=== PATIENT | male | born 1965 | race Caucasian/White ===

== ENCOUNTER 2018-08-13 19:19 | Emergency (ER) | payer MEDICARE ==
[~2018-08-13] VITALS: Ht 177.8 cm; Wt 71.0 kg
[~2018-08-13 19:19] MED LIST: ALLO100T30 PO; AMLO10TA8 PO; AMOX-367 PO; ASPI325T17 PO; ATOR40TA78 PO; ATOV750O PO; CALC0.25 PO; CALC200T3 PO; CARV25TA12 PO; CARV3.1212 PO; FAMO20TA7 PO; FLUC50TA PO; FLUC50TA3 PO; FURO-93 PO; FURO40TA6 PO; HYDR-3341 PO; INSU100I18 SQ-INSULIN; LABE300T2 PO; LOSA50TA14 PO; MAGN400T7 PO; METO5TAB57 PO; MYCO250C4 PO; MYCO500T3 PO; NPH,100V SQ-INSULIN; ONDA4TAB10 PO; OXYC-302 PO; OXYC5TAB3 PO; PRED10TA PO; PRED10TA14 PO; PRED20TA PO; SODI650T PO; SULF1TAB23 PO; TACR0.5C4 PO; TACR1CAP4 PO; ZOLP10TA PO
--- NOTE | 2018-08-13 19:46 | NUR ---
Angela MINA, at bedside to evaluate pt. Pt states that he has been having chest pain x 1 week. Pt states that today during dialysis he had chest pain, and "almost told them about it, but didn't."
[2018-08-13 19:59] LABS: BASOPHILS # (AUTO) 0.01 x10^3/uL (0-0.1); BASOPHILS % (AUTO) 0 % (0-1); EOSINOPHILS # (AUTO) 0.03 x10^3/uL (0-0.4); EOSINOPHILS % (AUTO) 1 % (1-7); LYMPHOCYTES # (AUTO) 1.09 x10^3/uL (1-3.4); LYMPHOCYTES % (AUTO) 31 % (22-44); MD NO; MEAN CORPUSCULAR HEMOGLOBIN 31.5 pg (27.5-34.5); MEAN CORPUSCULAR HGB CONC 33.2 g/dL (33.2-36.2); MEAN CORPUSCULAR VOLUME 94.9 fL (81-97); MEAN PLATELET VOLUME 7.3 fL (7.4-10.4); MONOCYTES # (AUTO) 0.37 x10^3/uL (0.2-0.8); MONOCYTES % (AUTO) 11 % (2-9); NEUTROPHILS # (AUTO) 2.01 x10^3/uL (1.8-6.8); NEUTROPHILS % (AUTO) 57 % (42-75); PLATELET COUNT 103 x10^3/uL (130-400); RED BLOOD COUNT 3.21 x10^6/uL (4.38-5.82)
[2018-08-13] MEDS ORDERED: ONDANSETRON 2MG/ML, 2ML ONE (20:00)
[2018-08-13] MEDS ORDERED: ONDANSETRON 2MG/ML, 2ML IVPush ONE (20:00)
[2018-08-13] MEDS ORDERED: MORPHINE SULFATE 4 MG/ML, 1ML ONE ×2 (20:01→21:09)
[2018-08-13 20:12] LABS: INTERNATIONAL NORMALIZED RATIO 1.15 (0.93-1.1); PROTHROMBIN TIME 12.1 Seconds (9.6-11.5)
[2018-08-13] MEDS: MORPHINE SULFATE 4 MG/ML, 1ML IVPush PRN ×2 (20:12→21:13)
--- NOTE | 2018-08-13 20:12 | NUR ---
Pt medicated per MAR.
[2018-08-13 20:26] LABS: ALANINE AMINOTRANSFERASE 13 U/L (12-78); ALBUMIN 2.9 g/dL (3.4-5.0); ANION GAP 8 mmol/L (5-15); CALCIUM 7.7 mg/dL (8.5-10.1); CHLORIDE 100 mmol/L (98-107); CREATININE 3.14 mg/dL (0.7-1.3)
[2018-08-13 20:30] LABS: ALKALINE PHOSPHATASE 119 U/L (45-117); BILIRUBIN,TOTAL 0.5 mg/dL (0.2-1.0); TOTAL PROTEIN 7.9 g/dL (6.4-8.2); TROPONIN I 0.019 ng/mL (0.000-0.045)
--- NOTE | 2018-08-13 21:08 | NUR ---
Pt resting on gurney, states pain is not controlled. This RN to give additional dose of morphine.
--- NOTE | 2018-08-13 21:13 | NUR ---
Pt medicated per MAR.
--- NOTE | 2018-08-13 21:47 | NUR ---
Dr. Lomax at bedside to evaluate pt and discuss ED findings.
--- NOTE | 2018-08-13 23:20 | NUR ---
Break RN: Pt resting on gurGetAFive with no s/s of acute distress. Pt states CP continues after meds. VSS. NSR on monitor. ERP to be notified of pt's continued CP. All results complete and chart up for recheck. Call light in reach.
[2018-08-13] MEDS ORDERED: OMNIPAQUE 350 MG/ML, 100ML BOTTLE ONE (23:57)
[2018-08-14 00:58] VITALS: BP 138/76
--- NOTE | 2018-08-14 00:59 | NUR ---
Patient/Caregiver given discharge instructions and they have confirmed that they understand the instructions. Patient ambulatory with steady gait.
== END 2018-08-14 01:00 | disposition home or self-care (01) ==
LOC: ED 20:53
DX: R07.2 Precordial pain (principal); J15.9 Unspecified bacterial pneumonia; Z86.73 Personal history of transient ischemic attack (TIA), and cerebral infarction without residual deficits; E11.9 Type 2 diabetes mellitus without complications; I11.0 Hypertensive heart disease with heart failure; I50.9 Heart failure, unspecified
CPT/HCPCS: 36415; 71045; 71275; 80053; 84484; 85025; 85610; 93005; 96374; 96375; 96376; 99284; J2405; Q9967

== ENCOUNTER 2019-07-13 19:55 | Emergency (ER) | payer MEDICARE ==
[~2019-07-13] VITALS: Ht 175.3 cm; Wt 90.0 kg
[~2019-07-13 19:55] MED LIST changes: -MAGN400T7 PO; +MAGN400T9 PO
--- NOTE | 2019-07-13 20:25 | NUR ---
PT CURRENTLY IN RADIOLOGY
[2019-07-13] MEDS ORDERED: ONDANSETRON ODT 4 MG PO ONE (20:30)
[2019-07-13] MEDS ORDERED: ONDANSETRON ODT 4 MG ONE (20:37)
[2019-07-13 20:53] LABS: ALANINE AMINOTRANSFERASE 14 U/L (12-78); ANION GAP 6 mmol/L (5-15); CALCIUM 13.4 mg/dL (8.5-10.1); CHLORIDE 96 mmol/L (98-107)
--- NOTE | 2019-07-13 20:54 | NUR ---
PT MEDICATED ORDERED. UPDATED ON POC INCLUDING PENDING TEST RESULTS AND CHART REVIEW BY ERP, DENIED QUESTIONS/CONCERNS AT THIS TIME. PROVIDED W/ WARM BLANKETS.
[2019-07-13 20:55] LABS: ALKALINE PHOSPHATASE 82 U/L (45-117); TOTAL PROTEIN 9.4 g/dL (6.4-8.2)
[2019-07-13 21:30] LABS: BASOPHILS # (AUTO) 0.02 x10^3/uL (0-0.1); BASOPHILS % (AUTO) 1 % (0-1); EOSINOPHILS # (AUTO) 0.06 x10^3/uL (0-0.4); EOSINOPHILS % (AUTO) 2 % (1-7); LYMPHOCYTES # (AUTO) 0.79 x10^3/uL (1-3.4); LYMPHOCYTES % (AUTO) 23 % (22-44); MD SCAN; MEAN CORPUSCULAR HGB CONC 34.8 g/dL (33.2-36.2); MEAN CORPUSCULAR VOLUME 97.7 fL (81-97); MEAN PLATELET VOLUME 8.1 fL (7.4-10.4); MONOCYTES # (AUTO) 0.41 x10^3/uL (0.2-0.8); MONOCYTES % (AUTO) 12 % (2-9); NEUTROPHILS # (AUTO) 2.11 x10^3/uL (1.8-6.8); NEUTROPHILS % (AUTO) 62 % (42-75); PLATELET COUNT 97 x10^3/uL (130-400); RED BLOOD COUNT 2.88 x10^6/uL (4.38-5.82); RED CELL DISTRIBUTION WIDTH 18.6 % (9.4-14.8)
[2019-07-13] MEDS ORDERED: MORPHINE SULFATE 4 MG/ML, 1ML IVPush ONE (21:30)
[2019-07-13] MEDS ORDERED: ONDANSETRON 2MG/ML, 2ML IVPush ONE (21:30)
--- NOTE | 2019-07-13 21:34 | NUR ---
PT TO CT VIA DONNELL
[2019-07-13] MEDS ORDERED: ONDANSETRON 2MG/ML, 2ML ONE (21:45)
[2019-07-13] MEDS ORDERED: MORPHINE SULFATE 4 MG/ML, 1ML ONE (21:45)
--- NOTE | 2019-07-13 22:03 | NUR ---
PIV PLACED IN RAC. MEDICATED ORDERED. REPOSITIONED ON GURNEY FOR COMFORT, PROVIDED W/ WARM BLANKETS. UPDATED PT AND SPOUSE ON POC INCLUDING PENDING TESTS AND CHART REVIEW BY ERP.
[2019-07-13] MEDS ORDERED: hydrALAzine 20 MG/ML, 1ML IV ONE (22:30)
[2019-07-13] MEDS ORDERED: SODIUM CHLORIDE 0.9%, 500ML IVBOLUS ONE (22:30)
[2019-07-13] MEDS ORDERED: hydrALAzine 20 MG/ML, 1ML ONE (22:39)
--- NOTE | 2019-07-13 22:50 | NUR ---
MEDICATED ORDERED. IVF INFUSING ORDERED. PT MORE SLOW TO ANSWER QUESTIONS, REMAINS A&O. REPOSITIONED ON GURNEY, PROVIDED W/ NEW WARM BLANKET.
--- NOTE | 2019-07-13 23:34 | NUR ---
Juani Robles [phone] please call for updates.
[2019-07-14 00:05] VITALS: BP 172/84
--- NOTE | 2019-07-14 00:28 | NUR ---
REVIEWED DISCHARGE INSTRUCTIONS W/ PT, VERBALIZED UNDERSTANDING TO INFORMATION PROVIDED INCLUDING FOLLOW UP CARE AND RETURN PRECAUTIONS, DENIED QUESTIONS/CONCERNS. PT REPORTS PAIN AND NAUSEA HAVE IMPROVED. PT ASSISTED FROM ED VIA DONNELL Waterman/ SPOUSE.
== END 2019-07-14 00:31 | disposition home or self-care (01) ==
LOC: ED 20:46
DX: R11.2 Nausea with vomiting, unspecified (principal); R10.31 Right lower quadrant pain; R10.32 Left lower quadrant pain; E86.0 Dehydration; I11.0 Hypertensive heart disease with heart failure; I50.9 Heart failure, unspecified; E11.9 Type 2 diabetes mellitus without complications; E78.5 Hyperlipidemia, unspecified; E78.00 Pure hypercholesterolemia, unspecified; I25.10 Atherosclerotic heart disease of native coronary artery without angina pectoris; Z86.73 Personal history of transient ischemic attack (TIA), and cerebral infarction without residual deficits
CPT/HCPCS: 36415; 71046; 74176; 80053; 82140; 83690; 85025; 96361; 96374; 96375; 99284; J0360; J2270; J2405; J7040; Q0162